=== PATIENT | male | born 1965 | race Caucasian/White ===

== ENCOUNTER → 2019-07-02 | Emergency (ER) | payer OTHER ==
[~2019-07-02] VITALS: Ht 170.2 cm; Wt 81.6 kg
== END | disposition left against medical advice (07) ==
LOC: ER 21:36
DX: B34.9 Viral infection, unspecified (principal)

== ENCOUNTER 2020-02-18 07:39 | Outpatient (CLI) | payer OTHER | END 2020-02-18 07:56 | disposition home or self-care (01) | LOC: LAB 07:39 | DX: M54.5 Low back pain (principal); E78.00 Pure hypercholesterolemia, unspecified; E78.1 Pure hyperglyceridemia; I10 Essential (primary) hypertension; Z11.9 Encounter for screening for infectious and parasitic diseases, unspecified; E03.8 Other specified hypothyroidism; N41.0 Acute prostatitis; N39.0 Urinary tract infection, site not specified; Z13.0 Encounter for screening for diseases of the blood and blood-forming organs and certain disorders involving the immune mechanism; Z12.11 Encounter for screening for malignant neoplasm of colon ==

== ENCOUNTER 2020-03-07 08:14 | Outpatient (CLI) | payer OTHER ==
[2020-03-07] MEDS ORDERED: ZANAFLEX2 MG PO (16:44)
== END 2020-03-07 08:24 | disposition home or self-care (01) ==
LOC: SONOGRAMA 08:14 → MAMO-SONO 08:45
PROVIDERS: ATTEND Internal Medicine Cardiovascular Disease
DX: R35.1 Nocturia (principal)

== ENCOUNTER 2020-04-06 07:38 | Outpatient (CLI) | payer OTHER ==
[~2020-04-06 07:38] MED LIST: ZANAFLEX2 MG PO
== END 2020-04-06 07:46 | disposition home or self-care (01) ==
LOC: NUCLEAR 07:38
PROVIDERS: ATTEND Internal Medicine Cardiovascular Disease
DX: R07.89 Other chest pain (principal)
CPT/HCPCS: 78452; 93017; A9500

== ENCOUNTER 2020-11-01 08:27 | Outpatient (CLI) | payer OTHER | END 2020-11-01 08:40 | disposition home or self-care (01) | LOC: MRI 08:27 | PROVIDERS: ATTEND Internal Medicine Cardiovascular Disease | DX: M51.37 Other intervertebral disc degeneration, lumbosacral region (principal); G93.89 Other specified disorders of brain; I77.4 Celiac artery compression syndrome | CPT/HCPCS: 72149 ==

== ENCOUNTER 2023-05-28 06:32 | Outpatient (CLI) | payer OTHER ==
[~2023-05-28 06:32] MED LIST changes: +NORFLEX100MG PO
== END 2023-05-28 06:43 | disposition home or self-care (01) ==
LOC: LAB 06:32
PROVIDERS: ATTEND Internal Medicine Cardiovascular Disease
DX: Z88.6 Allergy status to analgesic agent (principal); N23 Unspecified renal colic; N41.9 Inflammatory disease of prostate, unspecified; N41.0 Acute prostatitis; N39.0 Urinary tract infection, site not specified

== ENCOUNTER 2023-05-28 07:14 | Outpatient (CLI) | payer OTHER | END 2023-05-28 15:16 | disposition home or self-care (01) | LOC: SONOGRAMA 07:14 | PROVIDERS: ATTEND Internal Medicine Cardiovascular Disease | DX: R10.31 Right lower quadrant pain (principal) ==

== ENCOUNTER 2023-06-10 12:10 | Outpatient (CLI) | payer OTHER | END 2023-06-10 12:23 | disposition home or self-care (01) | LOC: RAD 12:10 | PROVIDERS: ATTEND Internal Medicine Cardiovascular Disease | DX: M54.50 Low back pain, unspecified (principal) ==